=== PATIENT | male | born 1940 | race Caucasian/White ===

== ENCOUNTER 2017-03-26 15:02 | Observation (INO) | payer MEDICARE, OTHER ==
--- NOTE | 2017-03-26 15:37 | ED Physician Documentation ---
History of Present Illness - Stated complaint Stated Complaint: CONFUSED,BLURRY VISION,LEANING - Chief complaint Chief Complaint: Neuro - Additonal information Additional information: hx primarily from family fairly healthy 76 male - hx mild dementia was out for a hike this afternoon and at 115 was witnessed by family to develop acute ataxia and loss of balance - kept veering to and leaning to the left and felt he did not have the depth perception to know where to put his feet as he walked the family was able to support him and assist him back to the trail head and then brought him straight to the ER for eval arriving approx 2 hr prior to onset of sx no loss of vision no speech impairment no focal weakness or numbness pt denies MCCLURE CP palp AP Review of Systems Constitutional: denies: Fever, Chills Eyes: denies: Loss of vision Ears: denies: Loss of hearing Throat: denies: Sore throat Cardiac: denies: Chest pain / pressure, Palpitations Respiratory: denies: Dyspnea GI: denies: Abdominal Pain Musculoskeletal: denies: Neck pain, Back pain Neurologic: reports: Other (acute ataxia and balance abn). denies: Focal weakness, Numbness, Difficulty speaking Endocrine: denies: Easy bruising / bleeding Immunocompromised: denies: Immunocompromised PD PAST MEDICAL HISTORY - Present Medications Home Medications: Ambulatory Orders Medication Instructions Recorded Confirmed Bimatoprost 0.01% Ophth Dops 1 drops EACHEYE BID 03/26/17 03/26/17 [Lumigan 0.01% Ophth Drops] Donepezil [Aricept] 5 mg PO DAILY 03/26/17 03/26/17 Simvastatin 5 mg PO DAILY 03/26/17 03/26/17 - Allergies Allergies/Adverse Reactions: Allergies Allergy/AdvReac Type Severity Reaction Status Date / Time Penicillins Allergy Unknown Verified 03/26/17 15:15 Sulfa (Sulfonamide Allergy Hives Verified 03/26/17 15:15 Antibiotics) PD ED PE NORMAL - Vitals Vital signs reviewed: Yes - HEENT HEENT: Atraumatic, PERRL, EOMI - Cardiac Cardiac: RRR - Respiratory Respiratory: No respiratory distress, Clear bilaterally - Abdomen Abdomen: Soft, Non tender - Derm Derm: Normal color - Extremities Extremities: No deformity - Neuro Neuro: Alert and oriented X 3, educational technician 2-12 intact, No motor deficit, No sensory deficit, Normal speech, Other (finger nose and heel to rodriguez normal) Results - Vitals Vitals: Vital Signs - 24 hr 03/26/17 03/26/17 15:10 17:01 Temperature 36.0 C L Heart Rate 65 64 Respiratory 16 16 Rate Blood Pressure 144/77 H 136/80 H O2 Saturation 100 100 Oxygen O2 Source Room air - EKG (time done) 1629 Rate: Rate (enter#) (68) Rhythm: NSR, Other (freq PVCs) [place]: Normal Ischemia: Non specific changes - Labs Labs: Laboratory Tests 03/26/17 03/26/17 03/26/17 15:23 15:23 15:23 WBC 7.3 RBC 5.17 Hgb 15.8 Hct 47.9 MCV 92.6 MCH 30.5 MCHC 32.9 RDW 13.8 Plt Count 159 MPV 7.5 Neut # 5.2 Lymph # 1.2 L [place] # 0.7 Eos # 0.1 Baso # 0.0 Absolute Nucleated RBC 0.00 Nucleated RBCs 0.0 Whole Blood INR Sodium 139 Potassium 3.2 L Chloride 103 Carbon Dioxide 28 Anion Gap 8.0 BUN 20 Creatinine 0.9 Estimated GFR (MDRD) 82 L Glucose 103 H POC Whole Bld Glucose Calcium 9.2 Troponin I < 0.04 Urine Color Urine Clarity Urine pH Ur Specific [place] Urine Protein Urine Glucose (UA) Urine Ketones Urine Occult Blood Urine Nitrite Urine Bilirubin Urine Urobilinogen Ur Leukocyte Esterase Ur Microscopic Review Urine Culture Comments 03/26/17 03/26/17 03/26/17 15:27 16:15 16:45 WBC RBC Hgb Hct MCV MCH MCHC RDW Plt Count MPV Neut # Lymph # [place] # Eos # Baso # Absolute Nucleated RBC Nucleated RBCs Whole Blood INR 1.1 Sodium Potassium Chloride Carbon Dioxide Anion Gap BUN Creatinine Estimated GFR (MDRD) Glucose POC Whole Bld Glucose 105 H Calcium Troponin I Urine Color YELLOW Urine Clarity CLEAR Urine pH 6.0 Ur Specific [place] 1.020 Urine Protein NEGATIVE Urine Glucose (UA) NEGATIVE Urine Ketones NEGATIVE Urine Occult Blood NEGATIVE Urine Nitrite NEGATIVE Urine Bilirubin NEGATIVE Urine Urobilinogen 0.2 (NORMAL) Ur Leukocyte Esterase NEGATIVE Ur Microscopic Review NOT INDICATED Urine Culture Comments NOT INDICATED - Rads (name of study) CTH Radiology: See rad report (no acute) CTA brain neck Radiology: See rad report (ill defined hypodensities periventricualr white matter c/w microvascular angiopathy, no abn enhancement, venous sinuses patent, mod stenosis P2 segment right SOFTWARE INSTALLER, patent left SOFTWARE INSTALLER, A1 segment left MARIA VICTORIA hypoplastic, ant comm artery patent, no aneurysm, no other sig stenosis, no sig cervical carotic or vertebral artery stenosis, no dissection) PD MEDICAL DECISION MAKING - ED course ED course: proceeded with telestroke neuro req TPA be ready if needed as we were right at the end of the the 3 hr window but pt sx were clearing on telestroke eval so neuro rec no TPA yet but rec pt get CTA brain while still in 4.5 hr window CTA obtained results called to the hospitalist Dr Lassiter - TPA CVA checklist Inclusion crititeria: positive: Sig neuro deficit, CT no bleed, Onset know < 4.5 hr Absolute contraindications: negative: SBP>185 DBP>110 s/p tx, CT shows bleed, CT shows major est CVA, Platelets <100K, PTT > 40, INR >1.7, Known bleeding disorder, Surgery/trauma < 15 days, Seizure at onset, Internal bleed < 22 days, Brain/spine surg < 3 m, Head trauma < 3 m, CVA < 3 months, Any hx ICH, Any hx brain aneurysm, Any hx brain AVM, Any hx brain tumor, Suspect SAH Absolute contraindications if 3-4.5 hr: negative: Coumadin (any INR), Age > 80, Combo prior CVA & DM Departure - Departure Disposition: [facility] DC/Xfer Clinical Impression: TIA (transient ischemic attack) Qualifiers: Transient cerebral ischemia type: unspecified Qualified Code(s): G45.9 - Transient cerebral ischemic attack, unspecified Condition: Fair Discharge Date/Time: 03/26/17 18:15 NIHSS - Time Time: 15:30 - Level of Consciousness Level of consciousness: (0) Alert, Keenly responsive LOC Questions: (0) Answers both Q's correct LOC Commands: (0) Performs both correctly - Gaze Best Gaze: (0) Normal - Visual Visual: (0) No loss - Facial Palsy Facial Palsy: (0) Normal, symmetrical movement - Motor Arms (both separate) Motor Arm (right): (0) No drift Motor Arm (left): (0) No drift - Motor Legs (both separate) Motor Leg (right): (0) No drift Motor Leg (left): (0) No drift - Limb Ataxia Limb Ataxia: (0) Absent - Sensory Sensory: (0) Normal - Best Language Best Language: (0) No aphasia - Dysarthria Dysarthria: (0) Normal - Extinction and Inattention (formally neg Extinction and inattention: (0) No abnormality (stroke scale zero but per family cannot walk without assistance due to ataxia and leaning left) - Total Score/Results Total Score/Result: 0
[2017-03-26 15:39] LABS: BASOPHILS % (AUTO) 0.6 %; EOSINOPHILS # (AUTO) 0.1 10^3/uL (0.0-0.7); EOSINOPHILS % (AUTO) 1.1 %; HCT - HEMATOCRIT 47.9 % (42.0-52.0); HGB - HEMOGLOBIN 15.8 g/dL (14.0-18.0); LYMPHOCYTES # (AUTO) 1.2 10^3/uL (1.5-3.5); LYMPHOCYTES % (AUTO) 16.9 %; MEAN CORPUSCULAR HEMOGLOBIN 30.5 pg (27.0-31.0); MEAN CORPUSCULAR HGB CONC 32.9 g/dL (32.0-36.0); MEAN CORPUSCULAR VOLUME 92.6 fL (80.0-94.0); MEAN PLATELET VOLUME 7.5 fL (7.4-11.4); MONOCYTES # (AUTO) 0.7 10^3/uL (0.0-1.0); MONOCYTES % (AUTO) 10.1 %; NEUTROPHILS # (AUTO) 5.2 10^3/uL (1.5-6.6); NEUTROPHILS % (AUTO) 71.3 %; RED BLOOD COUNT 5.17 10^6/uL (4.70-6.10); RED CELL DISTRIBUTION WIDTH 13.8 % (12.0-15.0); UNCORRECTED WHITE BLOOD COUNT 7.3 x10^3/uL; WHITE BLOOD COUNT 7.3 x10^3/uL (4.8-10.8)
[2017-03-26 15:46] LABS: CALCIUM 9.2 mg/dL (8.5-10.3); CREATININE 0.9 mg/dL (0.6-1.2); POTASSIUM 3.2 mmol/L (3.5-5.0)
--- NOTE | 2017-03-26 15:49 | CT Preliminary Report ---
Exam: CT Head W/O Stroke Protocol IMPRESSION: Generalized age-related cortical atrophic changes without evidence of acute intracranial abnormality. [facility] The call report notification system was initiated by Dr. Job Mcgraw at 15:44 hrs on 03/26/17. The above findings were discussed with Dr. Sabillon by Dr. Job Mcgraw at 15:47 hrs on 03/26/17. SITE ID: [id number]
--- NOTE | 2017-03-26 15:51 | CT Report ---
EXAM: CT HEAD EXAM DATE: 03/26/2017 03:38 PM. 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 COMPARISON: None. TECHNIQUE: Multiaxial CT images were obtained from the foramen magnum to the vertex. IV contrast: Non e. Reformats: Coronal. In accordance with CT protocol optimization, one or more of the following dose reduction techniques w ere utilized for this exam: automated exposure control, adjustment of mA and/or KV based on patient s ize, or use of iterative reconstructive technique. FINDINGS: Parenchyma: No intraparenchymal hemorrhage. No evidence of mass, midline shift, or CT findings of acu te infarction. Poe-white differentiation is distinct. Extraaxial Spaces: Normal for age. No subdural or epidural collections. Ventricles: The ventricles and cortical sulci are enlarged, consistent with age-related tissue loss. Sinuses: Imaged paranasal sinuses, orbits, and mastoids show no significant abnormality. Bones: Unremarkable. Other: Diffuse chronic microangiopathic white matter changes. Calcifications of intracranial carotid arteries. IMPRESSION: Generalized age-related cortical atrophic changes without evidence of acute intracranial abnormality. [facility] The call report notification system was initiated by Dr. Job Mcgraw at 15:44 hrs on 03/26/17. The above findings were discussed with Dr. Sabillon by Dr. Job Mcgraw at 15:47 hrs on 03/26/17. Referring Provider Line: [phone] SITE ID: [id number]
[2017-03-26] MEDS ORDERED: ALTEPLASE 100 MG in WATER FOR INJECTION,STERILE 100 ML IV STA (15:58)
[2017-03-26] MEDS ORDERED: ALTEPLASE 100 MG VIAL IV STA (16:01)
[2017-03-26] MEDS ORDERED: WATER FOR INJECTION STERILE IV STA (16:02)
[2017-03-26] MEDS ORDERED: ALTEPLASE IV STA (16:02)
[2017-03-26 17:02] LABS: BILIRUBIN,URINE NEGATIVE (NEGATIVE)
[2017-03-26 17:04] LABS: UA CHARGE (STRIP ONLY) YES; UR CULTURE IF IND NOT INDICATED
[2017-03-26] MEDS ORDERED: ACETAMINOPHEN 325 MG TABLET PO PRN (17:07)
[2017-03-26] MEDS ORDERED: SODIUM CHLORIDE FLUSH 0.9% 10 ML SYRINGE IVP PRN (17:07)
[2017-03-26] MEDS ORDERED: ZOLPIDEM 5 MG TABLET PO PRN (17:07)
[2017-03-26] MEDS ORDERED: ONDANSETRON 4 MG/2 ML VIAL IVP PRN (17:07)
[2017-03-26] MEDS ORDERED: IOPAMIDOL-300 100 ML VIAL IVP ONE (17:40)
--- NOTE | 2017-03-26 18:27 | CT Preliminary Report ---
Exam: CT Head Angio IMPRESSION: 1. Ill-defined hypodensities in the periventricular white matter, compatible with chronic microvascul ar angiopathy. No abnormal enhancement. Dural venous sinuses appear patent. 2. Moderate stenosis at the P2 segment of the right GI ASST. Patent left GI ASST. A1 segment of t he left MARIA VICTORIA is hypoplastic. Anterior communicating artery is patent. No evidence for aneurysm. No sig nificant stenosis otherwise. 3. No significant cervical carotid or vertebral artery stenosis. No evidence for dissection. [facility] SITE ID: [id number]
--- NOTE | 2017-03-26 18:28 | CT Preliminary Report ---
Exam: CT Neck Angio IMPRESSION: 1. Ill-defined hypodensities in the periventricular white matter, compatible with chronic microvascul ar angiopathy. No abnormal enhancement. Dural venous sinuses appear patent. 2. 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 A1 segment of t he left MARIA VICTORIA is hypoplastic. Anterior communicating artery is patent. No evidence for aneurysm. No sig nificant stenosis otherwise. 3. No significant cervical carotid or vertebral artery stenosis. No evidence for dissection. [facility] SITE ID: [id number]
--- NOTE | 2017-03-26 18:30 | CT Report ---
EXAM: CT ANGIOGRAM HEAD AND NECK EXAM DATE: 03/26/2017 05:33 PM. CLINICAL HISTORY: Acute ataxia resolving. COMPARISON: CT head without contrast the same day. TECHNIQUE: Routine axial helical CTA imaging was performed from the aortic arch through the [place] of [place]. Iodinated IV contrast: 80 cc Isovue 300 IV. Reconstructions: Routine multiplanar 3D MIP samm nstructions. NASCET Criteria are used for stenosis measurements. In accordance with CT protocol optimization, one or more of the following dose reduction techniques w ere utilized for this exam: automated exposure control, adjustment of mA and/or KV based on patient s ize, or use of iterative reconstructive technique. FINDINGS: Postcontrast CT: There is no mass, mass effect, midline shift or abnormal extraaxial fluid collection. Size and confi guration of the ventricles appear normal. There is mild diffuse cerebral volume loss. There is no int racranial hemorrhage. Poe white matter differentiation is maintained. Ill-defined hypodensity seen in the periventricular white matter, most likely chronic microvascular angiopathy. Brain stem and cerebellum appear unremark able. Calvarium and skull base appear intact and normal. Orbits and extracranial soft tissue appear unremarkable. No abnormal enhancement. Poe white matter differentiation appear preserved. Dural venous sinus and deep cerebral veins appear normal. CTA HEAD: Anterior Circulation: Multifocal nonstenotic atherosclerotic calcifications of bilateral cavernous ca rotid segments. A1 segment of the left MARIA VICTORIA appear hypoplastic. The internal carotid arteries (ICA), m iddle cerebral arteries (MCA), and anterior cerebral arteries (MARIA VICTORIA) are patent bilaterally. The anter ior communicating artery (A-COM) appears patent. No aneurysms, stenoses, or anatomic anomalies evide nt. Posterior Circulation: Intracranial vertebral arteries and basilar artery appear patent. Superior cer ebellar arteries appear patent. No evidence for aneurysm. The posterior communicating arteries (P-COM ) are patent bilaterally. P1 segments of bilateral NASCAR DRIVER are hypoplastic bilaterally (bilateral -t ype crisis intervention counselor). Right posterior communicating artery is patent. There is focal moderate stenosis at the P2 segment of the right NASCAR DRIVER (image 100 series 11). With distal reconstitution into the P3 segment. Left posterior communicating artery appear patent. No significant stenosis of the left NASCAR DRIVER. Left PICA origin at the distal V3 and V4 segment junction, appear patent. Right PICA appear patent. CTA NECK: Right Carotid: Origin of the innominate artery not visualized. Origin of the common carotid artery is patent. Common carotid artery patent to the bifurcation. Nonstenotic atherosclerotic calcification a t the carotid bulb and proximal ICA without stenosis. No evidence for dissection. Left Carotid: The origin of the left common carotid artery not visualized. Visualized left common car otid artery appear patent. Nonstenotic atherosclerotic plaque at the carotid bifurcation. No evidence for dissection. Vertebrals: The vertebrobasilar system shows no stenosis, dissection, aneurysm, or significant athero sclerotic disease. Visualized aortic arch and pulmonary artery appear normal. Other: The visualized lungs are clear. Multilevel degenerative changes of the cervical spine most pro minent at C5-C6 with at least mild canal narrowing. Multilevel facet arthropathy most pronounced at C 3-C4. Soft tissue neck appear unremarkable. No suspicious lytic or sclerotic osseous lesions. IMPRESSION: 1. Ill-defined hypodensities in the periventricular white matter, compatible with chronic microvascul ar angiopathy. No abnormal enhancement. Dural venous sinuses appear patent. 2. Moderate stenosis at the P2 segment of the right NASCAR DRIVER. Patent left NASCAR DRIVER. A1 segment of t he left MARIA VICTORIA is hypoplastic. Anterior communicating artery is patent. No evidence for aneurysm. No sig nificant stenosis otherwise. 3. No significant cervical carotid or vertebral artery stenosis. No evidence for dissection. [facility] Referring Provider Line: [phone] SITE ID: [id number]
--- NOTE | 2017-03-26 18:30 | CT Report ---
EXAM: CT ANGIOGRAM HEAD AND NECK EXAM DATE: 03/26/2017 05:33 PM. CLINICAL HISTORY: Acute ataxia resolving. COMPARISON: CT head without contrast the same day. TECHNIQUE: Routine axial helical CTA imaging was performed from the aortic arch through the [place] of [place]. Iodinated IV contrast: 80 cc Isovue 300 IV. Reconstructions: Routine multiplanar 3D MIP samm nstructions. NASCET Criteria are used for stenosis measurements. In accordance with CT protocol optimization, one or more of the following dose reduction techniques w ere utilized for this exam: automated exposure control, adjustment of mA and/or KV based on patient s ize, or use of iterative reconstructive technique. FINDINGS: Postcontrast CT: There is no mass, mass effect, midline shift or abnormal extraaxial fluid collection. Size and confi guration of the ventricles appear normal. There is mild diffuse cerebral volume loss. There is no int racranial hemorrhage. Poe white matter differentiation is maintained. Ill-defined hypodensity seen in the periventricular white matter, most likely chronic microvascular angiopathy. Brain stem and cerebellum appear unremark able. Calvarium and skull base appear intact and normal. Orbits and extracranial soft tissue appear unremarkable. No abnormal enhancement. Poe white matter differentiation appear preserved. Dural venous sinus and deep cerebral veins appear normal. CTA HEAD: Anterior Circulation: Multifocal nonstenotic atherosclerotic calcifications of bilateral cavernous ca rotid segments. A1 segment of the left MARIA VICTORIA appear hypoplastic. The internal carotid arteries (ICA), m iddle cerebral arteries (MCA), and anterior cerebral arteries (MARIA VICTORIA) are patent bilaterally. The anter ior communicating artery (A-COM) appears patent. No aneurysms, stenoses, or anatomic anomalies evide nt. Posterior Circulation: Intracranial vertebral arteries and basilar artery appear patent. Superior cer ebellar arteries appear patent. No evidence for aneurysm. The posterior communicating arteries (P-COM ) are patent bilaterally. 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 Right posterior communicating artery is patent. There is focal moderate stenosis at the P2 segment of the right FLAKE DRIER (image 100 series 11). With distal reconstitution into the P3 segment. Left posterior communicating artery appear patent. No significant stenosis of the left FLAKE DRIER. Left PICA origin at the distal V3 and V4 segment junction, appear patent. Right PICA appear patent. CTA NECK: Right Carotid: Origin of the innominate artery not visualized. Origin of the common carotid artery is patent. Common carotid artery patent to the bifurcation. Nonstenotic atherosclerotic calcification a t the carotid bulb and proximal ICA without stenosis. No evidence for dissection. Left Carotid: The origin of the left common carotid artery not visualized. Visualized left common car otid artery appear patent. Nonstenotic atherosclerotic plaque at the carotid bifurcation. No evidence for dissection. Vertebrals: The vertebrobasilar system shows no stenosis, dissection, aneurysm, or significant athero sclerotic disease. Visualized aortic arch and pulmonary artery appear normal. Other: The visualized lungs are clear. Multilevel degenerative changes of the cervical spine most pro minent at C5-C6 with at least mild canal narrowing. Multilevel facet arthropathy most pronounced at C 3-C4. Soft tissue neck appear unremarkable. No suspicious lytic or sclerotic osseous lesions. IMPRESSION: 1. Ill-defined hypodensities in the periventricular white matter, compatible with chronic microvascul ar angiopathy. No abnormal enhancement. Dural venous sinuses appear patent. 2. Moderate stenosis at the P2 segment of the right FLAKE DRIER. Patent left FLAKE DRIER. A1 segment of t he left MARIA VICTORIA is hypoplastic. Anterior communicating artery is patent. No evidence for aneurysm. No sig nificant stenosis otherwise. 3. No significant cervical carotid or vertebral artery stenosis. No evidence for dissection. [facility] Referring Provider Line: [phone] SITE ID: [id number]
[2017-03-26] MEDS ORDERED: ASPIRIN 325 MG TABLET PO SCH ×2 (20:00)
[2017-03-26] MEDS: SODIUM CHLORIDE FLUSH 0.9% 10 ML SYRINGE IVP SCH (22:22)
--- NOTE | 2017-03-27 07:31 | PROVIDER PROGRESS NOTE ---
Assessment/Plan - Problem List (1) TIA (transient ischemic attack) Qualifiers: Transient cerebral ischemia type: unspecified Qualified Code(s): G45.9 - Transient cerebral ischemic attack, unspecified - Current Meds Current Meds: Current Medications Generic Name Dose Route Start Last Admin Trade Name Concepcion PRN Reason Stop Dose Admin Sodium Chloride 10 ml 03/26/17 22:00 03/26/17 22:22 Normal Saline Flush 0.9% IVP 10 ml Q8HR JAC Administration - Lab Result Fish Bone Diagrams: 03/26/17 15:23 03/26/17 15:23 - Additional Planning My Orders: My Active Orders 03/27/17 09:00 Aspirin EC [Ecotrin] 81 mg PO DAILY Objective Vital Signs: Vital Signs - 24 hr 03/26/17 03/26/17 03/27/17 18:26 20:47 00:19 Temperature 36.6 C 36.6 C 36.5 C Heart Rate [ 69 71 68 Brachial] Respiratory 16 20 16 Rate Blood Pressure 157/92 H 145/64 H 136/62 H [Right Brachial artery] O2 Saturation 99 98 99 03/27/17 05:21 Temperature 36.6 C Heart Rate [ 62 Brachial] Respiratory 16 Rate Blood Pressure 133/73 H [Right Brachial artery] O2 Saturation 97 Oxygen O2 Source Room air I&O (Last 24 Hrs): Intake and Output Totals x24h 03/25/17 03/26/17 03/27/17 23:59 23:59 23:59 Intake Total 286 500 Balance 286 500 - Results Results: Laboratory Results WBC 7.3 x10^3/uL (4.8-10.8) 03/26/17 15:23 RBC 5.17 10^6/uL (4.70-6.10) 03/26/17 15:23 Hgb 15.8 g/dL (14.0-18.0) 03/26/17 15:23 Hct 47.9 % (42.0-52.0) 03/26/17 15:23 MCV 92.6 fL (80.0-94.0) 03/26/17 15:23 MCH 30.5 pg (27.0-31.0) 03/26/17 15:23 MCHC 32.9 g/dL (32.0-36.0) 03/26/17 15:23 RDW 13.8 % (12.0-15.0) 03/26/17 15:23 Plt Count 159 10^3/uL (130-450) 03/26/17 15:23 MPV 7.5 fL (7.4-11.4) 03/26/17 15:23 Neut # 5.2 10^3/uL (1.5-6.6) 03/26/17 15:23 Lymph # 1.2 10^3/uL (1.5-3.5) L 03/26/17 15:23 [place] # 0.7 10^3/uL (0.0-1.0) 03/26/17 15:23 Eos # 0.1 10^3/uL (0.0-0.7) 03/26/17 15:23 Baso # 0.0 10^3/uL (0.0-0.1) 03/26/17 15:23 Absolute Nucleated RBC 0.00 x10^3/uL 03/26/17 15:23 Nucleated RBCs 0.0 /100WBC 03/26/17 15:23 Whole Blood INR 1.1 (0.8-1.2) 03/26/17 16:15 Sodium 139 mmol/L (135-145) 03/26/17 15:23 Potassium 3.2 mmol/L (3.5-5.0) L 03/26/17 15:23 Chloride 103 mmol/L (101-111) 03/26/17 15:23 Carbon Dioxide 28 mmol/L (21-32) 03/26/17 15:23 Anion Gap 8.0 (6-13) 03/26/17 15:23 BUN 20 mg/dL (6-20) 03/26/17 15:23 Creatinine 0.9 mg/dL (0.6-1.2) 03/26/17 15:23 Estimated GFR (MDRD) 82 (>89) L 03/26/17 15:23 Glucose 103 mg/dL (70-100) H 03/26/17 15:23 POC Whole Bld Glucose 105 mg/dL (70 - 100) H 03/26/17 15:27 Calcium 9.2 mg/dL (8.5-10.3) 03/26/17 15:23 Troponin I < 0.04 ng/mL (<0.49) 03/26/17 15:23 Urine Color YELLOW 03/26/17 16:45 Urine Clarity CLEAR (CLEAR) 03/26/17 16:45 Urine pH 6.0 PH (5.0-7.5) 03/26/17 16:45 Ur Specific [place] 1.020 (1.002-1.030) 03/26/17 16:45 Urine Protein NEGATIVE mg/dL (NEGATIVE) 03/26/17 16:45 Urine Glucose (UA) NEGATIVE mg/dL (NEGATIVE) 03/26/17 16:45 Urine Ketones NEGATIVE mg/dL (NEGATIVE) 03/26/17 16:45 Urine Occult Blood NEGATIVE (NEGATIVE) 03/26/17 16:45 Urine Nitrite NEGATIVE (NEGATIVE) 03/26/17 16:45 Urine Bilirubin NEGATIVE (NEGATIVE) 03/26/17 16:45 Urine Urobilinogen 0.2 (NORMAL) E.U./dL (NORMAL) 03/26/17 16:45 Ur Leukocyte Esterase NEGATIVE (NEGATIVE) 03/26/17 16:45 Ur Microscopic Review NOT INDICATED 03/26/17 16:45 Urine Culture Comments NOT INDICATED 03/26/17 16:45
[2017-03-27] MEDS: SODIUM CHLORIDE FLUSH 0.9% 10 ML SYRINGE IVP SCH ×2 (07:42→15:45)
[2017-03-27] MEDS ORDERED: FAMOTIDINE 20 MG TABLET PO SCH (09:00)
[2017-03-27] MEDS ORDERED: POLYETHYLENE GLYCOL 3350 17 GM PACKET PO SCH (09:00)
[2017-03-27] MEDS ORDERED: ASPIRIN EC 81 MG TABLET PO SCH (09:00)
[2017-03-27] MEDS ORDERED: ENOXAPARIN 40 MG/0.4 ML SYRINGE SUBQ SCH (09:00)
--- NOTE | 2017-03-27 10:53 | HISTORY & PHYSICAL EXAMINATION ---
Chief Complaint - Chief Complaint Chief Complaint: Ataxia and disequilibrium History of Present Illness - Admitted From Admitted From:: emergence - History of Present Illness HPI Comment/Other: This is a fairly healthy 76-year-old male with significant past medical history of mild dementia, who present emergence department for evaluation of ataxia and disequilibrium. Patient's and daughter at the bedside help provide information. Patient was out with family for a hike at this afternoon. It was around 1:15, patient was found acute ataxia and kept veering, leaning to the left side. Patient state he did not have the depth perception, did not know where the foot lay on. The family was able to support him and help him back to the trail. patient was straightly brought to the emergence department. Then patient's symptoms are disappeared in emergence department. Patient denies focal sensation, motor deficits, vision changing, speech impairment. No chest pain, palpitation, shortness of breathing, headache, abdominal pain, bladder or bowel abnormal. CT of head without acute finding. Except potassium is slight lower at 3.2, other lab test value unremarkable. UA negative for UTI. Patient is admitted for TIA evaluation. Review of Systems - Constitutional Constitutional: denies: Fatigue, Fever, Chills, Weakness, Poor appetite, Diaphoresis, Night sweats, Weight gain, Weight loss - Eyes Eyes: denies: Pain, Irritation, Amaurosis, Spots in vision, Field loss, Vision loss, Dipolpia - Ears, Nose & Throat Ears, Nose & Throat: denies: Ear pain, Hearing loss, Hearing aids, Tinnitus, Vertigo, Nasal pain, Nosebleeds, Nasal obstruction, Nasal congestion, Postnasal drainage, Dentures, Sore throat, Hoarseness, Mouth lesions, Bleeding gums - Cardiovascular Cariovascular: denies: Irregular heart rate, Palpitations, Chest pain, Edema, Lightheadedness, Syncope, Exertional dyspnea, Orthopnea - Respiratory Respiratory: denies: Cough, Sputum production, Wheezing, Snoring, Hemoptysis, Orthopnea, SOB at rest, SOB with exertion, Apnea, Pleuritic pain - Gastrointestinal Gastrointestinal: denies: Abdominal pain, Abdominal distention, Constipation, Diarrhea, Change in bowel habits, Rectal bleeding, Black stools, Bloody stools, Nausea, Vomiting, Jorge blood emesis, Coffee grounds emesis, Poor appetite - Genitourinary Genitourinary: denies: Dysuria, Frequency, Urgency, Hematuria, Incontinence, Flank pain, Nocturia, Urethral discharge - Musculoskeletal Musculoskeletal: denies: Muscle pain, Back pain, Muscle aches, Stiffness, Limited range of motion, Muscle weakness, Gout, Joint pain - Integumentary Integumentary: denies: Rash, Pruritis, Lesions, Dryness - Neurological Neurological: denies: General weakness, Focal weakness, Headache, Dizziness, Numbness, Seizures, Incoordination, Slurred speech - Psychiatric Psychiatric: denies: Depression, Anxiety, Suicidal, Delusions, Hallucinations, Homicidal - Endocrine Endocrine: denies: Polyuria, Polydypsia, Polyphagia, Intolerance to cold, Intolerance to heat - Hematologic/Lymphatic Hematologic/Lymphatic: denies: Anemia, Bruising, Petechiae, Blood clots, Lymphadenopathy, Bleeding tendencies History - Past Medical History Cardiovascular: reports: High cholesterol Respiratory: reports: None Neuro: reports: Alzhiemer's Endocrine/Autoimmune: reports: None GI: reports: None : reports: None HEENT: reports: None Psych: reports: None Musculoskeletal: reports: None Derm: reports: None - Past Surgical History HEENT: reports: Tonsil/Adenoidectomy Meds/Allgy - Home Medications Home Medications: Ambulatory Orders Medication Instructions Recorded Confirmed Bimatoprost 0.01% Ophth Dops 1 drops EACHEYE BID 03/26/17 03/26/17 [Lumigan 0.01% Ophth Drops] Donepezil HCl [Aricept] 10 mg PO DAILY 03/27/17 03/27/17 Simvastatin [Zocor] 20 mg PO DAILY 03/27/17 03/27/17 - Allergies Allergies/Adverse Reactions: Allergies Allergy/AdvReac Type Severity Reaction Status Date / Time Penicillins Allergy Unknown Verified 03/26/17 15:15 Sulfa (Sulfonamide Allergy Hives Verified 03/26/17 15:15 Antibiotics) Exam - Vital Signs Vital Signs: Vital Signs x48h Temp Pulse Resp BP Pulse Ox 03/27/17 05:21 36.6 C 62 16 133/73 H 97 - Physical Exam General Appearance: positive: No acute distress, Alert. negative: Anxious, Lethargic Eyes Bilateral: positive: Normal inspection, PERRL. negative: No lid inflammation, Conjunctivae nml ENT: positive: ENT inspection nml, Pharynx nml, No signs of dehydration. negative: Purulent nasal drainage, Pharyngeal erythema Neck: positive: Nml inspection, Thyroid nml, No JVD, Trachea midline. negative : Lymphadenopathy (R), Lymphadenopathy (L), Swelling/bruising, Tracheal deviation Respiratory: positive: Chest non-tender, No respiratory distress, Breath sounds nml. negative: Wheezes, Rales Cardiovascular: positive: Regular rate & rhythm, No murmur, No gallop. negative : Systolic murmur, Diastolic murmur, Gallop/S4 Peripheral Pulses: positive: 2+ Abdomen: positive: Non-tender, No organomegaly, Nml bowel sounds, No distention. negative: Tenderness, Guarding, Rebound Back: positive: Nml inspection Skin: positive: Color nml, No rash, Warm, Dry. negative: Diaphoresis, Decubitus Extremities: positive: Non-tender, Full ROM, Nml appearance. negative: Pedal edema, Lucio's sign/cords Neurologic/Psychiatric: positive: Oriented x3, Motor nml, Sensation nml, Mood/ affect nml. negative: Weakness, Sensory loss, Facial droop, Slurred/abnml speech, Depressed mood/affect Conclusion/Plan - Problem List (1) TIA (transient ischemic attack) Conclusion/Plan: MRI, CTA of head and neck, ECHO, lipid panel Aspirin 81 mg on tele PT/OT neurological check, closely monitor Qualifiers: Transient cerebral ischemia type: unspecified Qualified Code(s): G45.9 - Transient cerebral ischemic attack, unspecified (2) Hypokalemia Conclusion/Plan: replace of K, recheck (3) Dementia Conclusion/Plan: stable, reconciliation of home meds Aricept (4) Hyperlipemia Conclusion/Plan: recheck lipid panel, reconciliation of home meds, adjust as needed - Lab Results Fish Bones: 03/26/17 15:23 03/26/17 15:23 Issues/Core Measures - Anticipated LOS Anticipated Stay Length: Less than 2 midnights - Issues Hospital Issues and Management Plan: lovenox for DVT prophylaxis - DVT/VTE - Prophylaxis VTE/DVT Device ordered at admit?: Yes
--- NOTE | 2017-03-27 12:39 | MRI Report ---
EXAM: MRI BRAIN WITHOUT CONTRAST EXAM DATE: 03/27/2017 10:51 AM. CLINICAL HISTORY: Tia. Acute ataxia, resolving. COMPARISON: CT scan of the head 03/26/2017. TECHNIQUE: Multiplanar, multisequence T1-weighted and fluid-sensitive MR sequences of the brain were performed. Sequences optimized for routine evaluation. Other: None. IV Contrast: None. FINDINGS: Brain Volume: Age advanced volume loss is present. Parenchyma/Dura: No masses, infarcts, or hemorrhage. Mild to moderate and fluent periventricular with patchy deep and subcortical white matter T2 and FLAIR bright signal is seen in the cerebral hemisphe res and brainstem. A 3 mm cystic focus is seen posterior laterally in the right thalamus. Ventricles/Cisterns: Mild prominence to the ventricular system and overlying cortical sulci is noted. No hydrocephalus. No abnormal extra-axial fluid collection or hemorrhage. Orbits: Note is made of bilateral lens removal. The optic nerve sheath complex, extraocular muscles, and orbital fat are unremarkable. Sella turcica: The pituitary gland, cavernous sinuses, suprasellar cistern, and optic chiasm are unre markable. IAC: The internal auditory canals and cerebellopontine angle cisterns are symmetric and unremarkable. Vasculature: Normal signal flow void is seen in the major arterial structures at the skull base. Sinuses: No sinusitis evident. Minimal mucosal thickening is seen inferiorly in the right maxillary a ntrum. Bones: The skull is intact. Other: None. IMPRESSION: 1. No acute intracranial abnormality. No acute infarct, mass, or hemorrhage. 2. Hpax-ic-rsgetklw white matter signal abnormality in the cerebral hemispheres and brainstem. Findin gs are nonspecific but typically secondary to small vessel ischemic change. 3. 3 mm cystic focus posterolaterally in the right thalamus. This suggests sequela of old lacunar inf arct. [facility] Referring Provider Line: [phone] SITE ID: [id number]
[2017-03-27 14:29] VITALS: BP 105/64
--- NOTE | 2017-03-27 14:38 | Discharge Plan ---
Discharge Plan Disposition: Home, Self Care Condition: Good Prescriptions: Aspirin [Aspirin EC] 81 mg PO DAILY #30 tablet. Diet: Regular Activity Restrictions: Activity as Tolerated Weight Bearing: Full Weight Additional Instructions or Follow Up instructions: see your PCP as soon as possible after you are back home due to recent hospitalization Echocardiogram shows good EF if you have fever, chills, feeling sick, see your doctor soon or come to ED take baby aspirin daily unless you have bleeding or upset stomach; it helps to lower the risk of stroke No Smoking: If you smoke, Please STOP! Call for help.
--- NOTE | 2017-03-27 18:17 | DISCHARGE SUMMARY ---
DATE OF ADMISSION: 03/26/2017 DATE OF DISCHARGE: 03/27/2017 PRIMARY CARE PROVIDER: No local PCP. DISCHARGE DIAGNOSES: 1. Transient ischemic attack with negative imaging studies on aspirin. 2. Hypokalemia stable. 3. Dementia without behavior disturbance. 4. Hyperlipidemia on statin. DISPOSITION: The patient will be discharged back home. He will fly back to [place] tomorrow. MEDICATIONS: 1. Aricept 10 mg daily. 2. Bimatoprost 0.01% eye drops 1 drop each eye as before. 3. Zocor 20 mg daily. 4. Aspirin 81 mg daily. FOLLOWUP ISSUES: 1. Recent ataxia and disequilibrium, possible transient ischemic attack on aspirin. Please follow up as indicated. BRIEF HISTORY: This 76-year-old gentleman with history of dementia came to the emergency room with tamayo dden onset ataxia and disequilibrium while he was hiking [place]. In the emergency room his C T of head showed no acute changes. Due to his symptoms, patient was placed in observation for TIA wor kup. HOSPITAL COURSE: The patient was on neuro checks. He was on telemetry. There was no focal or neural d eficit noted. His vital signs were stable. He underwent CT angio of neck and head, as well as MRI of the brain. All the imaging studies showed no acute stroke. His echocardiogram also showed good ejecti on fraction. He ambulated in the hallway. His thinks the patient is at his baseline. Patient was seen today. He is alert and oriented to himself. He has no complaint of chest pain, short ness of breath, fever, chills, or weakness. Discharge instructions were discussed with patient and hi s . Questions and concerns were answered. PHYSICAL EXAM: VITAL SIGNS: Temperature 36.2, heart rate 69, blood pressure 105/64, respirations 16, oxygen saturati on 100% on room air. HEENT: Head atraumatic, PERRLA. EOMI. GENERAL: In no acute distress. RESPIRATORY: Lung sounds clear. No respiratory distress. CARDIOVASCULAR: Regular heart rate and rhythm without murmur. GI: Abdomen soft, bowel tones present. MSK: Muscle tone 5+ equally. No edema. SKIN: Warm and dry. NEUROLOGIC: Alert and oriented to person. Speech clear. No facial droop. PSYCHIATRIC: The patient is pleasantly demented. MAJOR STUDIES: As mentioned in H and P, the patient does not have new laboratory tests at this point. MRI of brain on 03/27/2017 shows no acute intracranial abnormalities. Mild to moderate white matter s ignal abnormality in the cerebral hemisphere and brain stem. Findings are nonspecific, but technicall y secondary to a small vessel ischemic changes. A 3 mm cystic focus posterior anterior in the right t halamus which suggests old lacunar infarct. CTA of neck and head on 03/26/2017 impression: Chronic microvascular angiopathy. No abnormal enhancem ent. Moderate stenosis at P2 segment of right side of [employer]ER, patent left parietal [employer]ER, anterior communi cating arteries are patent. No evidence for aneurysm, no significant stenosis otherwise. No signific ant cervical, carotid or vertebral artery stenosis. No evidence of defection. CAT scan of head on 03/26/2017 shows age related changes without evidence of acute intracranial abnor mality. Echocardiogram on 03/27/2017 shows ejection fraction 60-65%. Spent 36 minutes on discharge. 15:9:00 JOB #: [id number] EXT JOB #:[id number]
== END 2017-03-27 15:15 | disposition home or self-care (01) ==
LOC: ED 15:02 → OBS 17:07
PROVIDERS: ADMIT Nurse Practitioner Gerontology; ATTEND Nurse Practitioner
DX: G45.9 Transient cerebral ischemic attack, unspecified (principal); E87.6 Hypokalemia; G30.9 Alzheimer's disease, unspecified; F02.80 Dementia in other diseases classified elsewhere, unspecified severity, without behavioral disturbance, psychotic disturbance, mood disturbance, and anxiety; E78.5 Hyperlipidemia, unspecified
CPT/HCPCS: 36415; 70450; 70496; 70498; 70551; 80048; 81003; 84484; 85025; 85610; 93005; 93306; 96372; 99284; 99285; A9270; G0378; J1650; Q3014; Q9967; 81001; 87086